=== PATIENT | male | born 1955 | race Caucasian/White ===

== ENCOUNTER 2018-11-09 11:35 | Outpatient (CLI) | payer BC ==
--- NOTE | 2018-11-09 13:03 | MRI ---
MRI Lumbar Spine Noncontrast: HISTORY: Lumbar radiculopathy. Patient states low back pain with pain radiating down both legs. Symptoms of be en present for a few months. COMPARISON: CT lumbar spine on 09/20/2018 FINDINGS: The visualized retroperitoneal structures demonstrate a normal appearance. Conus medullaris is normal in morphology and terminates at the L1-2 level. Minimal retrolisthesis of L3 on L4 which is also seen on prior exam. T12-L1 level: There is a mild disc osteophyte complex resulting in only mild effacement of ventral as pect of the thecal sac. The neural foramina are patent. L1-2: There is a mild disc osteophyte complex with mild facet degenerative changes present. There is mild effacement of the ventral aspect of thecal sac without significant central canal narrowing. The neural foramina are patent. L2-3: There is a mild disc osteophyte complex with facet hypertrophic changes and ligamentous thicken ing. Fluid signal intensity is seen in the facet joints. Findings result in generalized mild narrowing of the central spinal canal with minimal encroachment on each neural foramen. L3-4: As noted above, there is slight retrolisthesis of L3 on L4. There is loss of intervertebral dis c height. Broad-based disc osteophyte complex is present. Facet hypertrophic changes and mild ligamentous thickening are noted. Fluid signal intensity is seen in the facet joints. There is increa sed fat in the epidural space posterior to the thecal sac. Constellation of these findings results in moderate to severe narrowing of the central spinal canal. Mild bilateral neural foraminal narrowin g is present. L4-5: A broad-based disc osteophyte complex is present. There is moderate right and severe left facet hypertrophic changes. Findings result in moderate narrowing of the central spinal canal with mild to moderate left-sided neural foraminal narrowing. The right neural foramen is patent. L5-S1: There is no disc bulge or disc herniation. Facet hypertrophic changes are present. Central spi nal canal and neural foramina are patent. This level. A unilateral left-sided pars defect is present at this level. IMPRESSION: Multilevel degenerative changes as described above. There is moderate to severe central canal narrowi ng at the L3-4 level with slight retrolisthesis of L3 on L4. There is also moderate central canal narrowing at the L4-5 level.
--- NOTE | 2018-11-09 15:18 | RAD ---
RIGHT HIP 2 VIEWS: Date: 11/09/18 HISTORY: Lumbar pain. Hip pain. FINDINGS: Femoral head contour is normal. Mild degenerative changed noted with minimal spurring from the femora l head. No fracture or acute abnormality. IMPRESSION: Mild degenerative change. No acute abnormality. POS: OFF
== END 2018-11-09 11:36 | disposition home or self-care (01) ==
LOC: MRI 11:35
PROVIDERS: ATTEND Family Medicine
DX: M47.26 Other spondylosis with radiculopathy, lumbar region (principal); M48.061 Spinal stenosis, lumbar region without neurogenic claudication; M43.16 Spondylolisthesis, lumbar region; M16.11 Unilateral primary osteoarthritis, right hip
CPT/HCPCS: 72148

== ENCOUNTER 2019-09-21 16:02 | Emergency (ER) | payer BC, OTHER ==
[2019-09-22 11:47] LABS: SARS-CoV-2 MS2 Positive; SARS-CoV-2 N Gene Negative; SARS-CoV-2 S Gene Negative; SARS-CoV-2 by NAA Not Detected (NotDetected); SARS-CoV-2 orf1ab Negative
== END 2019-09-21 16:23 | disposition home or self-care (01) ==
LOC: ERS 16:02
DX: J02.9 Acute pharyngitis, unspecified (principal); Z20.828 Contact with and (suspected) exposure to other viral communicable diseases; E03.9 Hypothyroidism, unspecified; I10 Essential (primary) hypertension; F41.9 Anxiety disorder, unspecified
CPT/HCPCS: 87635; 99283; U0003

== ENCOUNTER 2022-11-16 13:54 | Outpatient (CLI) | payer MEDICARE, BC | END 2022-11-16 13:55 | disposition home or self-care (01) | LOC: ULT 13:54 | PROVIDERS: ATTEND Family Medicine | DX: I73.9 Peripheral vascular disease, unspecified (principal); R39.14 Feeling of incomplete bladder emptying | CPT/HCPCS: 76770; 93923 ==

== ENCOUNTER 2025-01-22 10:16 | Outpatient (CLI) | payer MEDICARE, BC | END 2025-01-22 10:17 | disposition home or self-care (01) | LOC: MRI 10:16 | PROVIDERS: ATTEND Family Medicine | DX: M47.22 Other spondylosis with radiculopathy, cervical region (principal); M25.78 Osteophyte, vertebrae; M48.02 Spinal stenosis, cervical region; Z95.0 Presence of cardiac pacemaker | CPT/HCPCS: 71046; 72040; 72141; 76014 ==

== ENCOUNTER 2025-01-26 16:52 | Emergency (ER) | payer MEDICARE, BC ==
[2025-01-26] MEDS ORDERED: Lidocaine 1% PF 5 ML VIAL ONE (17:30)
[2025-01-26 17:43] LABS: #Basophils 0.08 10x3/uL (0.0-0.2); #Eosinophils 0.21 10x3/uL (0.0-0.7); #Monocytes 0.83 10x3/uL (0.11-0.59); #Neutrophils 6.67 10x3/uL (1.40-6.50); %Basophils 0.8 % (0.0-1.0); %Eosinophils 2.2 % (0.0-10.0); %Lymphocytes 18.8 % (21.0-51.0); %Monocytes 8.6 % (0.0-10.0); %Neutrophils 69.2 % (42.0-75.0); Hematocrit 48.1 % (42.0-52.0); Hemoglobin 15.6 g/dL (14.0-18.0); Mean Corpuscular Hemoglobin 27.3 pg (27.0-31.0); Mean Corpuscular Volume 84.2 fL (78.0-98.0); Platelet Count 267 10x3/uL (130-400); Red Blood Cell (RBC) Count 5.71 mill/uL (4.70-6.10); White Blood Cell (WBC) Count 9.64 10x3/uL (4.8-10.8)
[2025-01-26 17:55] LABS: INR-International Normal Ratio 1.1; Prothrombin Time 14.7 sec (12.0-14.7)
[2025-01-26 17:56] LABS: PTT 39.8 sec (22.9-36.1)
[2025-01-26 18:16] LABS: ALT (SGPT) 13 U/L (Less than 45); AST (SGOT) 26 U/L (11-34); Albumin 4.2 g/dL (3.1-4.5); Alkaline Phosphatase 119 U/L (40-110); Anion Gap 15 mmol/L (10-20); BUN (Urea Nitrogen) 7 mg/dL (8.4-25.7); Bilirubin, Total 0.5 mg/dL (0.3-1.2); Calc. Creatinine Clearance 0 mL/min (70-130); Calcium 9.4 mg/dL (7.8-10.44); Carbon Dioxide 25 mmol/L (23-31); Chloride 105 mmol/L (98-107); Globulin 3.0 g/dL (2.4-3.5); Glucose 105 mg/dL (80-115); Potassium 3.7 mmol/L (3.5-5.1); Sodium 141 mmol/L (136-145)
== END 2025-01-26 18:45 | disposition home or self-care (01) ==
LOC: ERS 16:52
DX: S01.111A Laceration without foreign body of right eyelid and periocular area, initial encounter (principal); W01.10XA Fall on same level from slipping, tripping and stumbling with subsequent striking against unspecified object, initial encounter; Z79.01 Long term (current) use of anticoagulants
CPT/HCPCS: 12013; 70450; 72125; 80053; 85025; 85610; 85730; 86850; 86900; 86901